=== PATIENT | female | born 1940 | race Caucasian/White ===

== ENCOUNTER → 2017-11-27 | Outpatient (CLI) | payer MEDICARE ==
[~2017-11-27] MED LIST: ACET-2902 PO; APIX2.5T GT; ASPI81 GT; BISA10S PR; CARV3 GT; CEFE2I IV; EZET10 GT; FURO20 GT; HYDR20I IVP; INSREG SQ; INSU100V3 SQ; KDUR20 GT; LACT30L GT; LEVE500T53 GT; LEVO88TA4 GT; METO5I IVP; METO5VIA2 IVP; METR500 GT; ONDA4 NG; PANT40TA25 GT; POLY15DR38 OU; PRAV10TA39 GT; SENN1TAB72 GT; [UNRECOGNIZED DRUG - CODE] IV
[2017-11-27 08:35] VITALS: BP 145/75
== END | disposition home or self-care (01) ==
LOC: HBOWC 08:06
PROVIDERS: ATTEND Surgery Plastic and Reconstructive Surgery
DX: S31.000A Unspecified open wound of lower back and pelvis without penetration into retroperitoneum, initial encounter (principal); E03.9 Hypothyroidism, unspecified; F03.90 Unspecified dementia, unspecified severity, without behavioral disturbance, psychotic disturbance, mood disturbance, and anxiety; I50.9 Heart failure, unspecified; I25.10 Atherosclerotic heart disease of native coronary artery without angina pectoris; Z86.718 Personal history of other venous thrombosis and embolism; Z86.711 Personal history of pulmonary embolism; X58.XXXA Exposure to other specified factors, initial encounter; Y93.89 Activity, other specified; Y92.89 Other specified places as the place of occurrence of the external cause; Y99.8 Other external cause status
CPT/HCPCS: 11044; 11047

== ENCOUNTER → 2017-12-04 | Outpatient (CLI) | payer MEDICARE ==
[~2017-12-04] MED LIST changes: -ACET-2902 PO; +ACET-784 GT; -HYDR20I IVP; -INSREG SQ; +LIDOCAINE HCL 4% 50 ML SOLUTION TP ONE; +MAGN400O52 GT; -METO5I IVP; -METO5VIA2 IVP; +NA P133E35 PR; -ONDA4 NG; -POLY15DR38 OU; -[UNRECOGNIZED DRUG - CODE] IV
[2017-12-04 08:05] VITALS: BP 160/85
== END | disposition home or self-care (01) ==
LOC: HBOWC 07:36
PROVIDERS: ATTEND Surgery Plastic and Reconstructive Surgery
DX: S31.000D Unspecified open wound of lower back and pelvis without penetration into retroperitoneum, subsequent encounter (principal); E03.9 Hypothyroidism, unspecified; F03.90 Unspecified dementia, unspecified severity, without behavioral disturbance, psychotic disturbance, mood disturbance, and anxiety; I50.9 Heart failure, unspecified; I25.10 Atherosclerotic heart disease of native coronary artery without angina pectoris; Z86.718 Personal history of other venous thrombosis and embolism; Z86.711 Personal history of pulmonary embolism; X58.XXXD Exposure to other specified factors, subsequent encounter
CPT/HCPCS: 11044; 11047

== ENCOUNTER → 2017-12-18 | Outpatient (CLI) | payer MEDICARE ==
[~2017-12-18] MED LIST changes: -CEFE2I IV; +LIDOCAINE 4% 50 ML SOLUTION TP ONE; -LIDOCAINE HCL 4% 50 ML SOLUTION TP ONE; -METR500 GT; +POTA20LI36 GT
[2017-12-18 08:23] VITALS: BP 145/80
== END | disposition home or self-care (01) ==
LOC: HBOWC 08:08
PROVIDERS: ATTEND Surgery Plastic and Reconstructive Surgery
DX: L89.154 Pressure ulcer of sacral region, stage 4 (principal); E03.9 Hypothyroidism, unspecified; F03.90 Unspecified dementia, unspecified severity, without behavioral disturbance, psychotic disturbance, mood disturbance, and anxiety; I50.9 Heart failure, unspecified; I25.10 Atherosclerotic heart disease of native coronary artery without angina pectoris; R53.2 Functional quadriplegia; R53.81 Other malaise; R13.10 Dysphagia, unspecified; Z86.718 Personal history of other venous thrombosis and embolism; Z86.711 Personal history of pulmonary embolism
CPT/HCPCS: 11044; 11047

== ENCOUNTER → 2017-12-25 | Outpatient (CLI) | payer MEDICARE ==
[~2017-12-25] MED LIST changes: -KDUR20 GT
[2017-12-25 08:05] VITALS: BP 154/85
== END | disposition home or self-care (01) ==
LOC: HBOWC 07:46
PROVIDERS: ATTEND Surgery Plastic and Reconstructive Surgery
DX: L89.154 Pressure ulcer of sacral region, stage 4 (principal); E03.9 Hypothyroidism, unspecified; F03.90 Unspecified dementia, unspecified severity, without behavioral disturbance, psychotic disturbance, mood disturbance, and anxiety; I50.9 Heart failure, unspecified; I25.10 Atherosclerotic heart disease of native coronary artery without angina pectoris; R53.2 Functional quadriplegia; R53.81 Other malaise; R13.10 Dysphagia, unspecified; Z86.718 Personal history of other venous thrombosis and embolism; Z86.711 Personal history of pulmonary embolism
CPT/HCPCS: 11044; 11047

== ENCOUNTER → 2018-01-01 | Outpatient (CLI) | payer MEDICARE ==
[~2018-01-01] MED LIST changes: +INDO25 GT; +INSLAN SQ; +LIDOCAINE 4% 50 ML SOLUTION ONE; -LIDOCAINE 4% 50 ML SOLUTION TP ONE
[2018-01-01 10:12] VITALS: BP 136/88
== END | disposition home or self-care (01) ==
LOC: HBOWC 09:09
PROVIDERS: ATTEND Surgery Plastic and Reconstructive Surgery
DX: L89.154 Pressure ulcer of sacral region, stage 4 (principal); E03.9 Hypothyroidism, unspecified; I50.9 Heart failure, unspecified; I25.10 Atherosclerotic heart disease of native coronary artery without angina pectoris; R53.2 Functional quadriplegia; R53.81 Other malaise; F03.90 Unspecified dementia, unspecified severity, without behavioral disturbance, psychotic disturbance, mood disturbance, and anxiety; R13.10 Dysphagia, unspecified; Z86.718 Personal history of other venous thrombosis and embolism; Z86.711 Personal history of pulmonary embolism
CPT/HCPCS: 11044; 11047

== ENCOUNTER → 2018-01-08 | Outpatient (CLI) | payer MEDICARE ==
[~2018-01-08] MED LIST changes: -LIDOCAINE 4% 50 ML SOLUTION ONE
[2018-01-08 08:10] VITALS: BP 158/83
== END | disposition home or self-care (01) ==
LOC: HBOWC 07:36
PROVIDERS: ATTEND Surgery Plastic and Reconstructive Surgery
DX: L89.154 Pressure ulcer of sacral region, stage 4 (principal); E03.9 Hypothyroidism, unspecified; I50.9 Heart failure, unspecified; I25.10 Atherosclerotic heart disease of native coronary artery without angina pectoris; R53.2 Functional quadriplegia; R53.81 Other malaise; F03.90 Unspecified dementia, unspecified severity, without behavioral disturbance, psychotic disturbance, mood disturbance, and anxiety; R13.10 Dysphagia, unspecified; Z86.718 Personal history of other venous thrombosis and embolism; Z86.711 Personal history of pulmonary embolism
CPT/HCPCS: 11044; 11047

== ENCOUNTER → 2018-01-15 | Outpatient (CLI) | payer MEDICARE ==
[~2018-01-15] MED LIST changes: +LIDOCAINE 4% 50 ML SOLUTION TP ONE
[2018-01-15 08:49] VITALS: BP 135/63
== END | disposition home or self-care (01) ==
LOC: HBOWC 08:05
PROVIDERS: ATTEND Surgery Plastic and Reconstructive Surgery
DX: L89.154 Pressure ulcer of sacral region, stage 4 (principal); E03.9 Hypothyroidism, unspecified; I50.9 Heart failure, unspecified; I25.10 Atherosclerotic heart disease of native coronary artery without angina pectoris; R53.2 Functional quadriplegia; R53.81 Other malaise; F03.90 Unspecified dementia, unspecified severity, without behavioral disturbance, psychotic disturbance, mood disturbance, and anxiety; R13.10 Dysphagia, unspecified; Z86.718 Personal history of other venous thrombosis and embolism; Z86.711 Personal history of pulmonary embolism
CPT/HCPCS: 11044; 11047